=== PATIENT | female | born 1945 | race Caucasian/White ===

== ENCOUNTER → 2017-06-16 | Outpatient (CLI) | payer MEDICARE ==
[2017-06-16 13:16] LABS: Blood Urea Nitrogen 21 mg/dL (7-17); Non-African American GFR(MDRD) >60 (>60 ml/min/1.73 sqM)
--- NOTE | 2017-06-16 16:20 | CT ---
EXAMINATION TYPE: CT abdomen pelvis w con DATE OF EXAM: 06/16/2017 COMPARISON: NONE HISTORY: 72-year-old female LLQ abdominal pain TECHNIQUE: Contiguous axial scanning of the abdomen and pelvis following administration of 100 ml Omn ipaque 300 IV contrast. Delayed images through the kidneys and coronal/sagittal reconstructions perf ormed. CT DLP: 1659 mGycm Automated exposure control for dose reduction was used. FINDINGS: The heart is normal size with a small pericardial effusion. Strandy atelectasis or scarring at the me dial right base. No pleural effusion. Tiny hiatal hernia. No focal liver lesion or biliary ductal dilatation. Portal venous system is patent. Cholecystectomy clips. Adrenal glands and pancreas within normal limits. Spleen is upper limits of normal in size at 13.3 cm , axial image 24. Subcentimeter hypodensities in both kidneys too small for accurate CT characterization, likely cysts. The largest of these measuring 1.8 cm anterior midpole left kidney is compatible with a cyst. No mesenteric or retroperitoneal lymphadenopathy. No dilated small bowel, free fluid, or free air. There is some multisegmental annular narrowing along the ascending colon, for example, axial image 41 and coronal image 43 suggestive of peristaltic contractions. There is mild stool burden and sigmoid diverticulosis. No definite pericolonic inflammatory change seen. Difficult to exclude inflammatory w all thickening along the mid transverse colon, axial image 46 Mild circumferential bladder wall thickening. Pelvic phleboliths. Uterus surgically absent. Left ovar y is seen. Right ovary not clearly delineated. No abnormal fluid collection in the pelvis or pelvic l ymphadenopathy seen. Bones: Degenerative changes at the left greater than right hip and throughout the lumbar spine with g rade 1 anterolisthesis at L4-L5. IMPRESSION: 1. SLIGHT WALL THICKENING ALONG THE MID TRANSVERSE COLON COULD REPRESENT MILD COLITIS. 2. SIGMOID DIVERTICULOSIS WITHOUT ACUTE DIVERTICULITIS. 3. MILD CIRCUMFERENTIAL BLADDER WALL THICKENING; CORRELATE TO EXCLUDE CYSTITIS.
--- NOTE | 2017-06-17 14:10 | MM ---
Reason for exam: screening (asymptomatic). Last mammogram was performed 2 years ago. History: Patient is postmenopausal. Family history of breast cancer in maternal aunt at age 75. Physical Findings: A clinical breast exam by your physician is recommended on an annual basis and results should be correlated with mammographic findings. MG 3D Screening Mammo W/Cad Bilateral CC and MLO view(s) were taken. Prior study comparison: June 20, 2015, bilateral MG 3d screening mammo w/cad. May 06, 2014, mammogram, performed at [facility]. There are scattered fibroglandular densities. Stable right breast central middle depth mass, upper outer quadrant focal asymmetry and lower inner quadrant calcifications. No suspicious abnormality. No significant changes when compared with prior studies. ASSESSMENT: Benign, BI-RAD 2 RECOMMENDATION: Routine screening mammogram of both breasts in 1 year.
== END | disposition home or self-care (01) ==
LOC: RADCTMAIN 12:17
PROVIDERS: ATTEND Surgery
DX: Z12.31 Encounter for screening mammogram for malignant neoplasm of breast (principal); K57.30 Diverticulosis of large intestine without perforation or abscess without bleeding; K63.89 Other specified diseases of intestine; N32.89 Other specified disorders of bladder
CPT/HCPCS: 82565; 84520; 77063; 74177; 36415; G0202; Q9967

== ENCOUNTER → 2018-04-26 | Outpatient (CLI) | payer MEDICARE ==
--- NOTE | 2018-04-26 16:24 | BD ---
EXAMINATION TYPE: Axial Bone Density DATE OF EXAM: 04/26/2018 COMPARISON: NONE CLINICAL HISTORY: Height: 5 FT 3 1/4 IN Weight: 237 FRAX RISK QUESTIONS: History of Fracture in Adulthood: LT ELBOW Secondary Osteoporosis: Rheumatoid Arthritis: YES RISK FACTORS HISTORY OF: Surgery to Spine/Hip(right/left)/Wrist (right/left): TONIE CARPAL TUNNEL When: UNSURE Family History of Osteoporosis: YES Active: YES Postmenopausal woman: AGE 49 Lost more than 2 inches in height since high school: YES MEDICATIONS: Thyroid Medications: YES Which medication: SYNTHROID How Long: APPROX 10 YEARS Additional Medications: SYNTHROID,PAXIL, PRILOSEC, LOSARTIN, OCCUVITE, HYDROCHLOROTHIAZIDE, ATORVASTA TIN Additional History: EXAM MEASUREMENTS: Bone mineral densitometry was performed using the [employer] System. Bone mineral density as measured about the Lumbar spine is: ----- L1-L4(G/cm2): 1.251 T Score Values are as follows: ----- L2: -0.9 ----- L3: 1.8 ----- L4: 1.1 ----- L1-L4: 0.6 Bone mineral density has: INCREASED 3.1 % since study of: 2010 Bone mineral density about the R hip (g/cm2): 0.823 Bone mineral density about the L hip (g/cm2): 0.949 T Score values are as follows: -----R Neck: -1.5 -----L Neck: -0.6 -----R Total: -0.3 -----L Total: -0.4 Bone mineral density has: DECREASED -9.2 % since study of: 2010 IMPRESSION: Osteopenia (T Score between -2.5 and -1). There is slightly increased risk of fracture and the patient may be considered for treatment. Re-Screen 2-5 years. NOTE: T-SCORE=SD OF THE YOUNG ADULT MEAN.
== END | disposition home or self-care (01) ==
LOC: RADBDWWP 08:16
PROVIDERS: ATTEND Obstetrics & Gynecology
DX: Z13.820 Encounter for screening for osteoporosis (principal); M85.80 Other specified disorders of bone density and structure, unspecified site; Z78.0 Asymptomatic menopausal state
CPT/HCPCS: 77080